=== PATIENT | female | born 1995 | race Caucasian/White ===

== ENCOUNTER 2022-11-16 17:50 | Emergency (ER) | payer BC ==
[2022-11-16] MEDS ORDERED: Ondansetron 4 MG/2 ML SDV IVPUSH ONE (18:47)
[2022-11-16] MEDS ORDERED: Sodium Chloride 0.9% 1,000 ML IV SCH (19:00)
[2022-11-16 19:47] LABS: ESTIMATED GFR 79 mL/min (>60)
[2022-11-16 19:55] LABS: CORONAVIRUS COVID-19 NAA NEGATIVE (NEGATIVE)
[2022-11-16] MEDS ORDERED: Potassium Chloride 20 MEQ Tab.ER PO ONE (21:30)
[2022-11-16] MEDS ORDERED: diphenhydrAMINE 50 MG/ML SDV IVPUSH ONE (21:31)
[2022-11-16] MEDS ORDERED: Ketorolac 30 MG/ML SDV IVPUSH ONE (21:32)
[2022-11-16 23:29] VITALS: BP 112/76; PULSE 55
== END 2022-11-16 23:29 | disposition home or self-care (01) ==
LOC: JD.ED 17:50
DX: R51.9 Headache, unspecified (principal); R53.83 Other fatigue; R41.0 Disorientation, unspecified; Z20.822 Contact with and (suspected) exposure to COVID-19
CPT/HCPCS: 0241U; 36415; 70450; 80053; 81001; 81025; 83605; 83735; 84443; 85007; 85027; 86140; 86308; 87040; 96361; 96374; 96375; 99284; A9270; J1885; J2405; J7030

== ENCOUNTER 2023-02-17 19:27 | Emergency (ER) | payer BC ==
[2023-02-17] MEDS ORDERED: Sodium Chloride 0.9% 10 ML Syringe FLUSH PRN (19:46)
[2023-02-17] MEDS ORDERED: Sodium Chloride 0.9% 1,000 ML IV ONE (19:47)
[2023-02-17] MEDS ORDERED: Ondansetron 4 MG/2 ML SDV IVPUSH ONE (19:47)
[2023-02-17] MEDS ORDERED: Ketorolac 30 MG/ML SDV IVPUSH ONE (19:47)
[2023-02-17 20:24] LABS: CORONAVIRUS COVID-19 NAA NEGATIVE (NEGATIVE)
[2023-02-17] MEDS ORDERED: HYDROmorphone 0.5 MG/0.5 ML Syringe IVPUSH ONE (22:04)
[2023-02-17 22:58] VITALS: BP 112/67; PULSE 102
== END 2023-02-17 22:49 | disposition home or self-care (01) ==
LOC: JD.ED 19:27
DX: B34.9 Viral infection, unspecified (principal); Z20.822 Contact with and (suspected) exposure to COVID-19
CPT/HCPCS: 0241U; 36415; 71045; 80053; 81001; 83605; 85007; 85027; 85610; 86140; 87040; 87651; 96361; 96374; 96375; 99283; J1170; J1885; J2405; J3490; J7030; 99284